=== PATIENT | male | born 1990 | race Caucasian/White ===

== ENCOUNTER → 2023-02-27 | Outpatient (CLI) | payer BC ==
--- NOTE | 2023-02-27 12:07 | P.SLEEP ---
History of Present Illness DATE: 02/27/2023 CONSULTATION/NEW PATIENT EVALUATION HISTORY OF PRESENT ILLNESS/SLEEP-WAKE EVALUATION: 32-year-old gentleman had been evaluated in the sleep center for possible obstructive sleep apnea hypopnea syndrome. SLEEP SCHEDULE: Usually sleep schedule from 11 PM to 5:40 AM on weekdays and from midnight until 8 AM on weekend. FALLING ASLEEP: No problems with falling asleep. DURING SLEEP: Patient snores loudly and has witnessed episodes of stop breathing during the sleep by his . Positive history of restless leg symptoms Patient wakes up from sleep with nocturia and dry mouth No history of hypnogogical hallucinations, sleep paralysis, or cataplexy. DURING THE DAY/WAKE STATE: In the morning patient wake up tired. [place] sleepiness scale is 7. Usually patient doesn't take naps. PAST MEDICAL HISTORY: Headaches, sinuses problems, acid reflux. PAST SURGICAL HISTORY: None. MEDICATIONS: None. SOCIAL HISTORY: Negative for smoking, alcohol consumption occasional. FAMILY HISTORY: Hypertension, cancer, heart problems. REVIEW OF SYSTEMS: Loud snoring, witnessed sleep apneas. No fevers. No double vision. No recent chest pain. No shortness of breath. No abdominal pain. No bleeding episodes. No blood in urine. No seizure episodes. PHYSICAL EXAMINATION: GENERAL: A pleasant patient without any distress. VITAL SIGNS: BP 136/87, HR 90, RR 14, weight 240.8 pounds, height 5 foot 8.5 inches, body mass index 36.1. HEENT: PERRLA, EOMI. Evaluation of oropharynx showed tongue protrudes midline, low position of soft palate Mallampati 4. NECK: Supple. No JVD. Thyroid is not palpable. 17.5 inches in circumference. LUNGS: Clear to percussion and to auscultation. Good air exchange. No wheezing or rhonchi. HEART: S1, S2 regular. No murmurs, gallops or rubs. ABDOMEN: Soft and nontender. Bowel sounds are present. No organomegaly appreciated. EXTREMITIES: No clubbing or cyanosis. BULK STATION OPERATOR: Awake, alert, and oriented x3. Cranial nerves 2 to 7 intact. There is no fasciculation or atrophy noted. No focal deficits observed. ASSESSMENT: 1. Loud snoring, witnessed episodes of stop breathing during the sleep, extremely low position of soft palate Mallampati 4, wide neck 17.5 inches in circumference. Obstructive sleep apnea hypopnea syndrome. 2. History of headaches. 3. History of sinus problems. 4. Restless leg symptoms. 5 obesity BMI 36.1. PLAN: 1. Home sleep apnea test for evaluation of patient's breathing during sleep. 2. CPAP/BiPAP titration if sleep study confirms obstructive sleep apnea- hypopnea syndrome. 3. Preferable position during sleep on the side. 4. No driving if patient feels any sleepiness. Patient is aware of civil and criminal liability for unsafe driving. 5. Sleep hygiene with regular sleep time for at least 7.5-8 hours. 6. Watching and losing weight. Thank you very much for referring this patient for consultation. Sincerely, Santiago Ferrari MD, PhD, FAASM. Diplomat of [place] [employer], Sleep Medicine Board by [place] [employer] [employer] Water Quality Assistant of [facility] Sleep Note - Sleep Note Sleep Note: Temperature: Pulse Rate: Respiratory Rate: Blood Pressure: SpO2: Height: Weight: BMI: Neck Circumference:
== END ==
LOC: 3 N SLEEP 10:19
PROVIDERS: ATTEND Internal Medicine
DX: G47.33 Obstructive sleep apnea (adult) (pediatric) (principal); G25.81 Restless legs syndrome; K21.9 Gastro-esophageal reflux disease without esophagitis; E66.9 Obesity, unspecified; Z86.69 Personal history of other diseases of the nervous system and sense organs; Z68.36 Body mass index [BMI] 36.0-36.9, adult; Z87.09 Personal history of other diseases of the respiratory system
CPT/HCPCS: 99202

== ENCOUNTER → 2023-03-13 | Outpatient (CLI) | payer BC | LOC: 3 N SLEEP 17:03 | PROVIDERS: ATTEND Internal Medicine | DX: G47.33 Obstructive sleep apnea (adult) (pediatric) (principal) ==

== ENCOUNTER 2023-04-20 19:46 | Outpatient (CLI) | payer BC | END 2023-04-21 06:05 | disposition home or self-care (01) | LOC: 3 N SLEEP 19:46 | PROVIDERS: ATTEND Internal Medicine | DX: G47.33 Obstructive sleep apnea (adult) (pediatric) (principal) | CPT/HCPCS: 95811 ==

== ENCOUNTER → 2023-07-09 | Outpatient (CLI) | payer BC ==
--- NOTE | 2023-07-09 13:57 | P.PN ---
Subjective DATE: 07/09/2023 FOLLOW UP VISIT. Patient with obstructive sleep apnea hypopnea syndrome return to sleep center for follow-up visit. Recently patient had sleep study which documented obstructive sleep apnea hypopnea syndrome. Patient was initiated on PAP therapy and today is first visit after treatment was started. Patient was able to use BPAP equipment every night for the whole night. The patient does not have significant problems with the mask, PAP pressure and humidification. [place] sleepiness scale is 10. I checked information from BPAP unit. PAP unit pressure maximal inspiratory pressure 22, minimal expiratory pressure 8, pressure-support 4 ,average 2 1.6/17.6 cm H2O. Usage is 97% and 93 % for more then 4 hours, average 7 hours per night. Leak is 18.6 l/m, which is in acceptable range. Apnea Hypopnea Index is 3.5, which is normal. MEDICATIONS: None at the present time During physical exam: GENERAL: A pleasant patient without any distress. VITAL SIGNS: BP 140/83, HR 101, RR 12 , weight 243.2, temperature 98.2, oxygen saturation at room air 95 . HEENT: PERRLA, EOMI.low position of soft palate, Mallapati 4 . NECK: Supple. No JVD. LUNGS: Clear to percussion and to auscultation. Good air exchange. No wheezing or rhonchi. HEART: S1, S2 regular. ABDOMEN: Soft and nontender.[] EXTREMITIES: No clubbing or cyanosis. PARTS COUNTERPERSON: Awake, alert, and oriented x3. No focal deficit. Impressions: 1. Severe obstructive sleep apnea-hypopnea syndrome, apnea-hypopnea index 87 by results of home sleep apnea test. Patient demonstrated great compliance with treatment, benefiting from treatment. Normal respiration on BiPAP. 2. History of headaches, improved on treatment with BiPAP. 3. History of sinuses problems. 4. Obesity. Plan: 1. Continue using PAP equipment every night for the whole night. 2. To change air filter at least 1-2 times per month. 3. PAP unit should stay lower then position of the head. 4. Advised patient to remove all remaining water from humidifier canister daily and make it dry after each usage. Refill canister with fresh distilled water before each usage. 5. Sleep hygiene with regular time in bed for at least 8 hours. 6. Precautions related to driving. No driving if feel any sleepiness. 7. I will maintain prescription for PAP supplies including mask, tube, filters. 8. Follow up visit in 6 months or earlier if patient has any problems. 9. Watching and losing weight. Thank you very much for allowing me to participate in the management of your patient. Santiago Ferrari MD, PhD, FAASM. Diplomat of [place] [employer], Sleep Medicine Board by [place] [employer] Chief Pharmacist of [facility] [place]
== END ==
LOC: 3 N SLEEP 13:27
PROVIDERS: ATTEND Internal Medicine
DX: G47.33 Obstructive sleep apnea (adult) (pediatric) (principal); E66.9 Obesity, unspecified; Z87.09 Personal history of other diseases of the respiratory system; Z86.69 Personal history of other diseases of the nervous system and sense organs; Z99.89 Dependence on other enabling machines and devices
CPT/HCPCS: 99212

== ENCOUNTER → 2024-01-14 | Outpatient (CLI) | payer BC ==
[2024-01-14 13:17] VITALS: BP 120/82; PULSE 86; RESP 16; TEMP 98.3
--- NOTE | 2024-01-14 13:25 | P.PROGSL ---
Subjective DATE: 01/14/2024 FOLLOW UP VISIT. Patient with obstructive sleep apnea hypopnea syndrome return to sleep center for follow-up visit. Information from previous visit have been reviewed. Patient is using PAP equipment every night for the whole night, getting PAP supplies in time. The patient does not have significant problems with the mask, PAP unit and humidification. [place] sleepiness scale is 8, which is in normal range. I checked information from PAP unit. PAP unit pressure maximal inspiratory pressure 22, minimal expiratory pressure 8, pressure support 4, average pressure 20.9/16.9 cm H2O. Usage is 100% for more then 4 hours, average 7.4 hours per night. Leak is 17 l/m, which is in acceptable range. Apnea Hypopnea Index is 2.2, which is normal. MEDICATIONS: None at the present time During physical exam: GENERAL: A pleasant patient without any distress. VITAL SIGNS: Please see below, weight 247.4 pounds. HEENT: PERRLA, EOMI.low position of soft palate, Mallapati 4 . NECK: Supple. No JVD. LUNGS: Clear to percussion and to auscultation. Good air exchange. No wheezing or rhonchi. HEART: S1, S2 regular. ABDOMEN: Soft and nontender.[] EXTREMITIES: No clubbing or cyanosis. LITHOGRAPH PRESS FEEDER: Awake, alert, and oriented x3. No focal deficit. Impressions: 1. Obstructive sleep apnea-hypopnea syndrome. Patient demonstrated great compliance with treatment, benefiting from treatment. 2. History of sinus problems. 3. History of headaches, improved on BiPAP. 4. Obesity BMI 37.0, patient increased his weight on 4 pounds comparing with previous visit. Plan: 1. Continue using PAP equipment every night for the whole night. 2. To change air filter at least 1-2 times per month. 3. PAP unit should stay lower then position of the head. 4. Advised patient to remove all remaining water from humidifier canister daily and make it dry after each usage. Refill canister with fresh distilled water before each usage. 5. Sleep hygiene with regular time in bed for at least 8 hours. 6. Precautions related to driving. No driving if feel any sleepiness. 7. I will maintain prescription for PAP supplies including mask, tube, filters. 8. Follow up visit in 6 months or earlier if patient has any problems. 9. Watching and losing weight. Thank you very much for allowing me to participate in the management of your patient. Santiago Ferrari MD, PhD, FAASM. Diplomat of [place] [employer], Sleep Medicine Board by [place] [employer] Site Supervisor of [facility] [place] Objective - Vital Signs Vital Signs: Vital Signs Temp 98.3 F 01/14/24 13:14 Pulse 86 01/14/24 13:14 Resp 16 01/14/24 13:14 BP 120/82 01/14/24 13:14 Pulse Ox 95 01/14/24 13:14 FiO2 Intake & Output 01/13/24 01/14/24 01/14/24 18:59 06:59 18:59 Weight 112.037 kg
== END ==
LOC: 3 N SLEEP 13:05
PROVIDERS: ATTEND Internal Medicine
DX: G47.33 Obstructive sleep apnea (adult) (pediatric) (principal); E66.9 Obesity, unspecified; Z68.37 Body mass index [BMI] 37.0-37.9, adult; Z99.89 Dependence on other enabling machines and devices; Z86.69 Personal history of other diseases of the nervous system and sense organs; Z87.09 Personal history of other diseases of the respiratory system
CPT/HCPCS: 99212

== ENCOUNTER 2024-03-13 10:01 | Emergency (ER) | payer BC ==
[2024-03-13 10:06] VITALS: RESP 18
[2024-03-13] MEDS: SODIUM CHLORIDE 0.9% 1,000 ML IV STA (10:35)
[2024-03-13] MEDS: KETOROLAC 15 MG/ML 1 ML VIAL IVP STA (10:41)
[2024-03-13 10:44] LABS: Basophils % (A) 1 %; Eosinophils # (A) 0.2 k/uL (0-0.7); Eosinophils % (A) 2 %; HCT 44.9 % (39.0-53.0); HGB 15.2 gm/dL (13.0-17.5); Lymphocytes # (A) 1.6 k/uL (1.0-4.8); Lymphocytes % (A) 22 %; MCH 31.2 pg (25.0-35.0); MCHC 33.8 g/dL (31.0-37.0); MCV 92.4 fL (80.0-100.0); Mean Platelet Volume 9.6; Monocytes # (A) 0.3 k/uL (0-1.0); Monocytes % (A) 3 %; Neutrophils # (A) 5.1 k/uL (1.3-7.7); Neutrophils % (A) 70 %; Platelet Count 212 k/uL (150-450); RBC 4.86 m/uL (4.30-5.90); RDW 12.7 % (11.5-15.5); WBC 7.3 k/uL (3.8-10.6)
[2024-03-13 10:47] LABS: Appearance,Urine Clear (Clear); Bilirubin,Urine Negative (Negative); Blood,Urine Negative (Negative); Color,Urine Light Yellow; Glucose,Urine (UA) Negative (Negative); Ketones,Urine Negative (Negative); Leukocyte Esterase,Urine Negative (Negative); Nitrite,Urine Negative (Negative); PH, Urine 5.5 (5.0-8.0); Protein,Urine Negative (Negative); Specific Gravity,Urine 1.018 (1.001-1.035); Urobilinogen,Urine <2.0 mg/dL (<2.0)
[2024-03-13 11:00] LABS: African American GFR (CKD) >90 (>60 ml/min/1.73 sqM); Anion Gap 10 mmol/L; Blood Urea Nitrogen 13 mg/dL (9-20); Carbon Dioxide 25 mmol/L (22-30); Chloride 106 mmol/L (98-107); Glucose 98 mg/dL (74-99); Non-African American GFR(CKD) >90 (>60 ml/min/1.73 sqM); Potassium 4.6 mmol/L (3.5-5.1); Sodium 141 mmol/L (137-145)
--- NOTE | 2024-03-13 11:52 | US ---
EXAMINATION TYPE: US scrotum with doppler. Grayscale and color Doppler Duplex imaging performed of selina kramer scrotum. DATE OF EXAM: 03/13/2024 COMPARISON: NONE CLINICAL INDICATION: Male, 33 years old with history of right testicular pain/swelling since friday, fever friday, patient denies any other signs, symptoms, or relevant history EXAM MEASUREMENTS: TESTICLES: Right Testicle: 5.6 x 2.3 x 3.1 cm Left Testicle: 4.7 x 2.7 x 3.2 cm EPIDIDYMIS HEAD: Right Epididymis: 1.1 x 0.8 x 1.1 cm Left Epididymis: 1.7 x 1.2 x 1.6 cm Doppler performed to assess for testicular vascularity; good bilateral color flow and waveforms are s een. There is no evidence of testicular torsion. Presence of hydroceles: NO Presence of varicoceles: NO Multiple heterogenous, isoechoic, vascular areas in the right testis, largest = 1.4 x 0.9 x 1.9 cm an other measuring up to 0.7 cm. IMPRESSION: 1. Intratesticular masslike areas within the right testis the largest measuring up to 1.9 cm and ano ther measuring up to 0.7 cm. Internal color Doppler flow is present. Findings concerning for intrates ticular mass in until proven otherwise. Urology consultation for management recommended. 2. Small left hydrocele. [facility], , 03/13/2024 11:46 AM
--- NOTE | 2024-03-13 12:34 | ED ---
General Adult HPI - General Chief complaint: Recheck/Abnormal Lab/Rx Stated complaint: ED Evaluation Time Seen by Provider: 03/13/24 10:11 Source: patient, RN notes reviewed, old records reviewed Mode of arrival: ambulatory Limitations: no limitations - History of Present Illness Initial comments: Patient is a 33-year-old male who presents emergency department complaining of right testicular pain and swelling. States he noticed it earlier this week and it has gotten more swollen and is not improving. States the pain is kind of constant and nagging but not super severe. No known palliative or provocative factors. Denies any history of STDs. Denies any abdominal pain. Denies any pain while peeing or blood in his urine. Presents for further evaluation at this time. - Related Data Allergies Allergy/AdvReac Type Severity Reaction Status Date / Time No Known Allergies Allergy Verified 03/13/24 10:32 Review of Systems ROS Statement: Those systems with pertinent positive or pertinent negative responses have been documented in the HPI. Review of Systems: CONST: Denies fever EYES: Denies blurry vision ENT: Denies nasal congestion C/V: Denies Chest pain RESP: Denies shortness of breath GI: Denies abdominal pain : Endorses testicular pain SKIN: Denies rash. MSK: Denies joint pain. NEURO: Denies headache ROS Other: All systems not noted in ROS Statement are negative. Past Medical History Past Medical History: No Reported History History of Any Multi-Drug Resistant Organisms: None Reported Past Surgical History: No Surgical Hx Reported Past Anesthesia/Blood Transfusion Reactions: No Reported Reaction Past Psychological History: No Psychological Hx Reported Smoking Status: Never smoker Past Alcohol Use History: Occasional Past Drug Use History: None Reported General Exam - General Exam Comments Initial Comments: General: Appears anxious HEAD: Normal with no signs of head trauma. EYES: EOMI ENT: Hearing grossly intact, normal oropharynx. RESPIRATORY: Clear breath sounds bilaterally. No wheezes, rales, or rhonchi. C/V: Tachycardic with regular rhythm. S1 and S2 auscultated, , peripheral pulses 2+ and intact throughout ABD: Abd is soft, nontender, nondistended : Testicular exam revealed some tenderness to palpation of the right testicle with no obvious palpable mass or deformity present. No skin changes. No rashes. No hernias palpated. EXT: Normal range of motion, no obvious deformity SKIN: No rashes or lesions observed on exposed skin. NEURO: Alert and oriented x 4. Limitations: no limitations Course Vital Signs 03/13/24 10:02 Temperature 99.0 F Pulse Rate 115 H Respiratory 18 Rate Blood Pressure 149/92 O2 Sat by Pulse 96 Oximetry Medical Decision Making - Medical Decision Making Was pt. sent in by a medical professional or institution (TONE King, CIRCUIT JUDGE, urgent care, hospital, or prison...) When possible be specific @ -No Did you speak to anyone other than the patient for history (EMS, parent, family, police, friend...)? What history was obtained from this source @ -No Did you review nursing and triage notes (agree or disagree)? Why? @ -I reviewed and agree with nursing and triage notes Were old charts reviewed (outside hosp., previous admission, EMS record, old EKG, old radiological studies, urgent care reports/EKG's, prison records)? Report findings @ -No old charts were reviewed Differential Diagnosis (chest pain, altered mental status, abdominal pain women, abdominal pain men, vaginal bleeding, weakness, fever, dyspnea, syncope, headache, dizziness, GI bleed, back pain, seizure, CVA, palpatations, mental health, musculoskeletal)? @ -Testicular torsion, testicular mass, epididymitis, STD, UTI. This list is not all inclusive. EKG interpreted by me (3pts min.). @ -None done X-rays interpreted by me (1pt min.). @ -None done CT interpreted by me (1pt min.). @ -None done U/S interpreted by me (1pt. min.). @ -Ultrasound reveals right testicular masslike areas of unknown etiology. What testing was considered but not performed or refused? (CT, X-rays, U/S, labs)? Why? @ -None What meds were considered but not given or refused? Why? @ -None Did you discuss the management of the patient with other professionals (professionals i.e. TONE King, CIRCUIT JUDGE, lab, RT, psych nurse, social media marketing specialist, defect repairer glassware, teacher, highway patrol officer, mattress spring encaser)? Give summary @ -Discussed with on-call urologist Dr. Sinclair. He does not believe patient requires inpatient admission at this time however he is concern for testicular malignancy at this time and wants the patient to be evaluated by urology this week. Instructed the patient to call his office on Friday to follow-up with [address] Sinclair partners [address] Dr. Sinclair will be out of town. Patient needs to be seen next week in urology office. These instructions conveyed to the patient. Was smoking cessation discussed for >3mins.? @ -No Was critical care preformed (if so, how long)? @ -No Were there social determinants of health that impacted care today? How? (Homelessness, low income, unemployed, alcoholism, drug addiction, transportation, low edu. Level, literacy, decrease access to med. care, prison, rehab)? @ -No Was there de-escalation of care discussed even if they declined (Discuss DNR or withdrawal of care, Hospice)? DNR status @ -No What co-morbidities impacted this encounter? (DM, HTN, Smoking, COPD, CAD, Cancer, CVA, ARF, Chemo, Hep., AIDS, mental health diagnosis, sleep apnea, mo rbid obesity)? @ -None Was patient admitted / discharged? Hospital course, mention meds given and r oute, prescriptions, significant lab abnormalities, going to OR and other pertinent info. @ -Patient presents with right testicular pain and swelling. We will obtain ultrasound of the scrotum as well as obtain basic labs and urinalysis. Patient was in agreement this plan. Vitals are within acceptable limits. Given a small bolus of IV fluids as well as Toradol for pain. Labs returned within acceptable limits. Ultrasound reveals possible testicular malignancy. I did discuss this with the patient. He expressed understanding of my concerns. Discussed with on-call urologist Dr. Sinclair. He does not believe patient requires inpatient admission at this time however he is concern for testicular malignancy at this time and wants the patient to be evaluated by urology this week. Instructed the patient to call his office on Friday to follow-up with [address] Sinclair partners [address] Dr. Sinclair will be out of town. Patient needs to be seen next week in urology office. These instructions conveyed to the patient. The patient expressed understanding. I will provide written instructions on what to say when he calls on Friday in his discharge paperwork. Patient was in agreement with this plan. Strict return precautions discussed. Patient reiterates and understands that he needs to be evaluated this week by urologist. Strict return precautions discussed. I instructed the patient to follow up with their PCP in the next 1-3 days. I explained that the patient should return to the emergency department if they experience any worsening symptoms. Strict return precautions were discussed with the patient. The patient expressed understanding of these instructions. I answered all questions that the patient had. The patient was discharged home in fair condition with their prescriptions and follow up information. Undiagnosed new problem with uncertain prognosis? @ -No Drug Therapy requiring intensive monitoring for toxicity (Heparin, Nitro, Insulin, Cardizem)? @ -No Were any procedures done? @ -No Diagnosis/symptom? @ -Testicular mass Acute, or Chronic, or Acute on Chronic? @ -Acute Uncomplicated (without systemic symptoms) or Complicated (systemic symptoms)? @ -Complicated Side effects of treatment? @ -No Exacerbation, Progression, or Severe Exacerbation? @ -No Poses a threat to life or bodily function? How? (Chest pain, [place], [place], pneumonia, PE, COPD, DKA, ARF, appy, cholecystitis, CVA, Diverticulitis, Homicidal, Suicidal, threat to staff... and all critical care pts) @ -Not in the acute setting, however further testing is needed to rule out malignancy which can be life-threatening. - Lab Data Result diagrams: 03/13/24 10:29 03/13/24 10:29 Lab Results 03/13/24 03/13/24 03/13/24 Range/Units 10:29 10:29 10:29 WBC 7.3 (3.8-10.6) k/uL RBC 4.86 (4.30-5.90) m/uL Hgb 15.2 (13.0-17.5) gm/dL Hct 44.9 (39.0-53.0) % MCV 92.4 (80.0-100.0) fL MCH 31.2 (25.0-35.0) pg MCHC 33.8 (31.0-37.0) g/dL RDW 12.7 (11.5-15.5) % Plt Count 212 (150-450) k/uL MPV 9.6 Neutrophils % 70 % Lymphocytes % 22 % Monocytes % 3 % Eosinophils % 2 % Basophils % 1 % Neutrophils # 5.1 (1.3-7.7) k/uL Lymphocytes # 1.6 (1.0-4.8) k/uL Monocytes # 0.3 (0-1.0) k/uL Eosinophils # 0.2 (0-0.7) k/uL Basophils # 0.0 (0-0.2) k/uL Sodium 141 (137-145) mmol/L Potassium 4.6 (3.5-5.1) mmol/L Chloride 106 (98-107) mmol/L Carbon Dioxide 25 (22-30) mmol/L Anion Gap 10 mmol/L BUN 13 (9-20) mg/dL Creatinine 0.96 (0.66-1.25) mg/dL Est GFR (CKD-EPI)AfAm >90 (>60 ml/min/1.73 sqM) Est GFR (CKD-EPI)NonAf >90 (>60 ml/min/1.73 sqM) Glucose 98 (74-99) mg/dL Calcium 10.0 (8.4-10.2) mg/dL Urine Color Light Yellow Urine Appearance Clear (Clear) Urine pH 5.5 (5.0-8.0) Ur Specific [place] 1.018 (1.001-1.035) Urine Protein Negative (Negative) Urine Glucose (UA) Negative (Negative) Urine Ketones Negative (Negative) Urine Blood Negative (Negative) Urine Nitrite Negative (Negative) Urine Bilirubin Negative (Negative) Urine Urobilinogen <2.0 (<2.0) mg/dL Ur Leukocyte Esterase Negative (Negative) Disposition Clinical Impression: Testicular mass Disposition: HOME SELF-CARE Condition: Fair Instructions (If sedation given, give patient instructions): Testicle Pain (ED) Additional Instructions: Follow-up with urology this week. You have testicular malignancy until proven otherwise. Call Dr. Sinclair's urology office this week. State to the operator supply that you need a appointment this week over concern for testicular cancer. States that I, Dr. Vizcaino your ER doctor spoke with Dr. Sinclair over the phone today on 03/13/2024. We reviewed your ultrasound imaging and he would like you to be evaluated this week in the office by one of his partners as he wi ll be traveling out of town. His partners names are Dr. Quintero or Dr. Westfall. He states that you need to be evaluated this week in the office. Do not delay follow-up evaluation. Is patient prescribed a controlled substance at d/c from ED?: No Referrals: None,Stated [Primary Care Provider] - 1-2 days Clif Quintero MD [STAFF PHYSICIAN] - 1-2 days Kvng Westfall MD [STAFF PHYSICIAN] - 1-2 days Mohan Sinclair MD [STAFF PHYSICIAN] - 1-2 days Time of Disposition: 12:34
[2024-03-13 12:54] VITALS: BP 168/87; PULSE 114; TEMP 98.6
== END 2024-03-13 12:52 | disposition home or self-care (01) ==
LOC: EC 10:01
DX: N43.3 Hydrocele, unspecified (principal)
CPT/HCPCS: 36415; 76870; 80048; 81003; 85025; 93975; 96361; 96374; 99283

== ENCOUNTER → 2024-04-01 | Outpatient (CLI) | payer BC | END | disposition home or self-care (01) | LOC: LABWHC1 12:58 | PROVIDERS: ATTEND Urology | DX: C62.90 Malignant neoplasm of unspecified testis, unspecified whether descended or undescended (principal) | CPT/HCPCS: 36415; 82105 ==

== ENCOUNTER → 2024-09-01 | Outpatient (CLI) | payer BC ==
[2024-09-01 11:30] VITALS: BP 128/80; PULSE 81; RESP 12; TEMP 98.7
--- NOTE | 2024-09-01 11:44 | P.PROGSL ---
Subjective DATE: 09/01/2024 FOLLOW UP VISIT. Patient with obstructive sleep apnea hypopnea syndrome return to sleep center for follow-up visit. Information from previous visit have been reviewed. Patient is using PAP equipment every night for the whole night, getting PAP supplies in time. The patient does not have significant problems with the mask, PAP unit and humidification. [place] sleepiness scale is 8, which is in normal range. I checked information from BPAP unit. BPAP unit pressure maximal inspiratory pressure 22, minimal expiratory pressure 8, average pressure 20.6/16.6 cm H2O. Usage is 100% for more then 4 hours, average 7.8 hours per night. Leak is 13 l/m, which is in acceptable range. Apnea Hypopnea Index is 2.0, which is normal. MEDICATIONS have been reviewed, please see below. During physical exam: GENERAL: A pleasant patient without any distress. VITAL SIGNS: Please see below, weight is 245 lbs. HEENT: PERRLA, EOMI.low position of soft palate, Mallapati 4 . NECK: Supple. No JVD. LUNGS: Clear to percussion and to auscultation. Good air exchange. No wheezing or rhonchi. HEART: S1, S2 regular. ABDOMEN: Soft and nontender. Slightly obese EXTREMITIES: No clubbing or cyanosis. SEATING CAPTAIN: Awake, alert, and oriented x3. No focal deficit. Impressions: 1. Obstructive sleep apnea-hypopnea syndrome. Patient demonstrated great compliance with treatment, benefiting from treatment. 2. Mild obesity, BMI 36.7, patient lost 2 pounds comparing with the previous visit. 3. History of sinuses problems. 4. History of headaches in the past, no headaches with BiPAP. Plan: 1. Continue using PAP equipment every night for the whole night. 2. Sleep hygiene with regular time in bed for at least 7.5-8 hours 3. PAP unit should stay lower then position of the head. 4. Advised patient to remove all remaining water from humidifier canister daily and make it dry after each usage. Refill canister with fresh distilled water b efore each usage. 5. Watching and losing weight. 6. Precautions related to driving. No driving if feel any sleepiness. 7. I will maintain prescription for PAP supplies including mask, tube, filters. 8. Follow up visit in 8 months or earlier if patient has any problems. Thank you very much for allowing me to participate in the management of your patient. Santiago Ferrari MD, PhD, FAASM. Diplomat of [place] [employer], Sleep Medicine Board by [place] [employer] Rivet Heater of [facility] [place] Objective - Vital Signs Vital Signs: Vital Signs Temp 98.7 F 09/01/24 11:30 Pulse 81 09/01/24 11:30 Resp 12 09/01/24 11:30 BP 128/80 09/01/24 11:30 Pulse Ox 97 09/01/24 11:30 FiO2 Intake & Output 08/31/24 09/01/24 09/01/24 18:59 06:59 18:59 Weight 111.13 kg Home Medications: Home Medications Medication Instructions Recorded Confirmed Type Loratadine [Claritin] 5 mg PO DAILY 09/01/24 09/01/24 History
== END ==
LOC: 3 N SLEEP 11:17
PROVIDERS: ATTEND Internal Medicine
DX: G47.33 Obstructive sleep apnea (adult) (pediatric) (principal); E66.9 Obesity, unspecified; Z68.36 Body mass index [BMI] 36.0-36.9, adult; Z87.09 Personal history of other diseases of the respiratory system; Z99.89 Dependence on other enabling machines and devices
CPT/HCPCS: 99212